=== PATIENT | male | born 1975 | race Caucasian/White ===

== ENCOUNTER → 2016-09-16 | Outpatient (CLI) | payer OTHER ==
--- NOTE | 2016-09-16 12:26 | US ---
EXAMINATION: Limited left inguinal ultrasound HISTORY: Evaluate for hernia COMPARISON: None TECHNIQUE: Grayscale and color Doppler images obtained. FINDINGS/IMPRESSION: No abnormal mass or fluid collection noted within the left inguinal region. No definite evidence of an inguinal or femoral hernia with or without Valsalva.
== END ==
LOC: MW.US 08:54
PROVIDERS: ATTEND Emergency Medicine
DX: R10.30 Lower abdominal pain, unspecified (principal)
CPT/HCPCS: 76705; 76705-26